=== PATIENT | male | born 1950 | race Caucasian/White ===

== ENCOUNTER 2018-05-23 15:51 | Emergency (ER) | payer OTHER ==
--- NOTE | 2018-05-23 16:20 | EDM.PDOC ---
ED HPI GENERAL MEDICAL PROBLEM - General Chief Complaint: Lower Extremity Injury/Pain Stated Complaint: RT KNEE ISSUES Time Seen by Provider: 05/23/18 15:52 Source of Information: Reports: Patient History Limitations: Reports: No Limitations - History of Present Illness INITIAL COMMENTS - FREE TEXT/NARRATIVE: HISTORY AND PHYSICAL: History of present illness: Patient is a 67-year-old male who presents to the emergency room with complaints of right knee pain. He states his right knee gave out while standing in the shower and he had fallen onto it. Since that time he has had increased pain when weight bearing concerned he may "broke something". Denies any previous injury or trauma to the affected extremity. Denies any numbness or tingling to the affected extremity. Review of systems: As per history of present illness and below otherwise all systems reviewed and negative. Past medical history: As per history of present illness and as reviewed below otherwise noncontributory. Surgical history: As per history of present illness and as reviewed below otherwise noncontributory. Social history: No reported history of drug or alcohol abuse. Family history: As per history of present illness and as reviewed below otherwise noncontributory. Physical exam: General: Well-developed and well-nourished 67-year-old male. Alert and oriented. Nontoxic appearing and in no acute distress. HEENT: Atraumatic, normocephalic, pupils equal and reactive bilaterally, negative for conjunctival pallor or scleral icterus, mucous membranes moist, throat clear, neck supple, nontender, trachea midline. No drooling or trismus noted. No meningeal signs Lungs: Clear to auscultation, breath sounds equal bilaterally, chest nontender. Heart: S1S2, regular rate and rhythm without overt murmur Abdomen: Soft, nondistended, nontender. Negative for masses or hepatosplenomegaly. Negative for costovertebral tenderness. Pelvis: Stable nontender. Genitourinary: Deferred. Rectal: Deferred. Skin: Intact, warm, dry. No lesions or rashes noted. Extremities: Moves all extremities per self without difficulty or deficits. He does have pain to the medial patella when weight bearing or with palpation. No knee instability noted. He is negative for cords or calf pain. Neurovascular unremarkable. Neuro: Awake, alert, oriented. Cranial nerves II through XII unremarkable. Cerebellum unremarkable. Motor and sensory unremarkable throughout. Exam nonfocal. Notes: X-ray shows no acute abnormalities. Modest degenerative changes are noted. Will place the patient in a knee immobilizer and crutches. Encouraged him to follow- up with the orthopedic provider as we did discuss the limitations of x-ray. Her measures were reviewed and discussed. He voices understanding and is agreeable to plan of care. Denies any further questions or concerns at this time. Diagnostics: Xray Right knee Therapeutics: Knee immobilizer, crutches Prescription: Tramadol PRN (Disp # 20) Impression: Knee injury, right Plan: 1. Rest, ice, elevate the affected extremity. Wear the knee immobilizer and crutches as directed. 2. Tylenol and/or Ibuprofen as needed for pain. Tramadol for moderate to severe pain may cause drowsiness so do not take it while driving or functioning outside of the house. 3. Follow-up with the orthopedic provider in the next 1-2 days. Return to the ED as needed and as discussed. Definitive disposition and diagnosis as appropriate pending reevaluation and review of above. Right Knee Pain Score (Numeric/FACES): 10 - Related Data Allergies Allergy/AdvReac Type Severity Reaction Status Date / Time meperidine [From Demerol] Allergy Vomiting Verified 05/23/18 16:05 Home Meds: Home Meds Aspirin [Children's Aspirin] 81 mg PO DAILY 05/23/18 [History] Atenolol 100 mg PO DAILY 05/23/18 [History] Cetirizine HCl 10 mg PO DAILY 05/23/18 [History] Citalopram Hydrobromide [Celexa] 1 tab DAILY 05/23/18 [History] Fluticasone Propionate [Flonase Allergy Relief] 1 spray DAILY PRN 05/23/18 [ History] Lisinopril 40 mg PO DAILY 05/23/18 [History] Methylphenidate [Metadate ER] 1 tab DAILY PRN 05/23/18 [History] Mirtazapine 0.5 tab BEDTIME 05/23/18 [History] Olopatadine [Patanol 0.1% Ophth Soln] 1 drop DAILY 05/23/18 [History] Oxymetazoline [Afrin Original 0.05% Nasal Hankins] 1 spray DAILY PRN 05/23/18 [ History] Pramipexole Di-HCl [Mirapex] 2 tab BEDTIME 05/23/18 [History] Propranolol [Inderal] 20 mg PO BID 05/23/18 [History] Simvastatin 20 mg PO DAILY 05/23/18 [History] amLODIPine Besylate [Norvasc] 1 tab DAILY 05/23/18 [History] carBAMazepine [Carbamazepine ER] 2 tab BEDTIME 05/23/18 [History] glipiZIDE [Glucotrol] 1 tab DAILY 05/23/18 [History] Review of Systems - Review of Systems Review Of Systems: ROS reveals no pertinent complaints other than HPI. ED EXAM, GENERAL - Physical Exam Exam: See Below (See dictation) Course - Vital Signs Last Recorded V/S: Last Vital Signs Temp 97.2 F 05/23/18 16:02 Pulse 70 05/23/18 16:02 Resp 18 05/23/18 16:02 BP 129/69 05/23/18 16:02 Pulse Ox 94 L 05/23/18 16:02 - Orders/Labs/Meds Orders: Active Orders 24 hr Category Date Time Status Communication Order [RC] STAT Care 05/23/18 16:49 Active Knee 3V Rt [CR] Stat Exams 05/23/18 16:11 Taken DME for Discharge [COMM] Stat Oth 05/23/18 16:49 Ordered Departure - Departure Time of Disposition: 16:59 Disposition: Home, Self-Care 01 Clinical Impression: Right knee injury Qualifiers: Encounter type: initial encounter Qualified Code(s): S89.91XA - Unspecified injury of right lower leg, initial encounter - Discharge Information Instructions: Knee Sprain, Adult, [id number] Referrals: Christen Milligan [Primary Care Provider] - Forms: ED Department Discharge Additional Instructions: The following information is given to patients seen in the emergency department who are being discharged to home. This information is to outline your options for follow-up care. We provide all patients seen in our emergency department with a follow-up referral. The need for follow-up, as well as the timing and circumstances, are variable depending upon the specifics of your emergency department visit. If you don't have a primary care physician on staff, we will provide you with a referral. We always advise you to contact your personal physician following an emergency department visit to inform them of the circumstance of the visit and for follow-up with them and/or the need for any referrals to a consulting specialist. The emergency department will also refer you to a specialist when appropriate. This referral assures that you have the opportunity for follow-up care with a specialist. All of these measure are taken in an effort to provide you with optimal care, which includes your follow-up. Under all circumstances we always encourage you to contact your private physician who remains a resource for coordinating your care. When calling for follow-up care, please make the office aware that this follow-up is from your recent emergency room visit. If for any reason you are refused follow-up, please contact the [facility] at and asked to speak to the emergency department charge nurse. [facility] [address] [place] [id number] [facility] [address], [address] [place] [address] 1. Rest, ice, elevate the affected extremity. Wear the knee immobilizer and crutches as directed. 2. Tylenol and/or Ibuprofen as needed for pain. Tramadol for moderate to severe pain. This may cause drowsiness, so do not take it while driving or needint to be functioning outside of the house. 3. Follow-up with the orthopedic provider in the next 1-2 days. Return to the ED as needed and as discussed. - My Orders Last 24 Hours: My Active Orders 05/23/18 16:11 Knee 3V Rt [CR] Stat 05/23/18 16:49 Communication Order [RC] STAT DME for Discharge [COMM] Stat - Assessment/Plan Last 24 Hours: My Active Orders 05/23/18 16:11 Knee 3V Rt [CR] Stat 05/23/18 16:49 Communication Order [RC] STAT DME for Discharge [COMM] Stat
--- NOTE | 2018-05-26 14:48 | CR ---
EXAM DATE: 05/23/18 PATIENT'S AGE: 67 Patient: BETZAIDA BRANTLEY Facility: [place], [place] Site . Site : [id number] Study: XRay Knee Right [id number]/10/2018 4:44:26 PM Ordering Physician: Doctor Smith Final Report: INDICATION: Right knee gave out. COMPARISON: None. FINDINGS: The soft tissue structures are intact. Bony mineralization is normal. Modest degenerative changes are noted as evidenced by a medial and patellofemoral compartment space narrowing. There is no acute fracture nor dislocation. IMPRESSION: No acute abnormality right knee. Dictated by Aline Deleon MD @ May 23 2018 4:56PM (Electronic Signature) Report Signed by Proxy. DARION
== END 2018-05-23 17:25 | disposition home or self-care (01) ==
LOC: MW.ED 15:51
DX: S89.91XA Unspecified injury of right lower leg, initial encounter (principal); Z79.82 Long term (current) use of aspirin; Z79.84 Long term (current) use of oral hypoglycemic drugs; Z79.899 Other long term (current) drug therapy; Z88.5 Allergy status to narcotic agent; W10.9XXA Fall (on) (from) unspecified stairs and steps, initial encounter
CPT/HCPCS: 73562-26-RT; 73562-RT; 99283

== ENCOUNTER 2021-11-30 12:53 | Emergency (ER) | payer MEDICARE, OTHER | END 2021-11-30 15:08 | disposition home or self-care (01) | LOC: MW.ED 12:53 | DX: M25.551 Pain in right hip (principal); I10 Essential (primary) hypertension; E78.00 Pure hypercholesterolemia, unspecified; E11.9 Type 2 diabetes mellitus without complications; Z79.899 Other long term (current) drug therapy; Z88.8 Allergy status to other drugs, medicaments and biological substances; Z72.0 Tobacco use; Z86.16 Personal history of COVID-19 | CPT/HCPCS: 73502-26-RT; 73502-RT; 73562-26-RT; 73562-RT; 99283 ==

== ENCOUNTER 2024-11-04 17:35 | Emergency (ER) | payer OTHER ==
[2024-11-04] MEDS: Oseltamivir 75 MG Cap PO ONE (19:57)
== END 2024-11-04 20:00 | disposition home or self-care (01) ==
LOC: MW.ED 17:35
DX: J10.1 Influenza due to other identified influenza virus with other respiratory manifestations (principal); I10 Essential (primary) hypertension; E78.00 Pure hypercholesterolemia, unspecified; E11.9 Type 2 diabetes mellitus without complications; Z86.16 Personal history of COVID-19; Z90.89 Acquired absence of other organs; Z88.8 Allergy status to other drugs, medicaments and biological substances; Z79.899 Other long term (current) drug therapy; Z75.8 Other problems related to medical facilities and other health care
CPT/HCPCS: 71046; 87428; 93005; 99285; A9270; 93010; 99283